=== PATIENT | male | born 1975 | race Caucasian/White ===

== ENCOUNTER 2017-12-26 11:17 | Emergency (ER) | payer OTHER ==
[2017-12-26 11:22] VITALS: RESP 20; TEMP 98.1
--- NOTE | 2017-12-26 11:52 | ED ---
General Adult HPI - General Chief complaint: Anxiety Stated complaint: Chest pain Time Seen by Provider: 12/26/17 11:23 Source: patient, RN notes reviewed Mode of arrival: wheelchair Limitations: no limitations - History of Present Illness Initial comments: 42-year-old male presents to the emergency department with a chief complaint of needing medication prescriptions. The patient states that he suffers from PTSD he states that he is here for his Xanax and Prozac refilled which his counselor states that he needs to bring to his appointment. They state that it needs to be a doctor from the [facility]. He denies any suicidal homicidal ideation. He denies any fever chills cough cold. He states that he is otherwise feeling well. He just needs his prescriptions. He states that he did get some Xanax 2 days ago. He denies any abdominal pain any chest pain. He states he is having his anxiety like attacks where his whole body will feel funny. He'll move his finger like he shooting someone he does get some chest heaviness and just feels completely incapable during this period and this is exactly like his typical anxiety flareup. He states no different than his typical PTSD reaction. - Related Data Allergies Allergy/AdvReac Type Severity Reaction Status Date / Time No Known Allergies Allergy Verified 12/26/17 11:22 Review of Systems ROS Statement: Those systems with pertinent positive or pertinent negative responses have been documented in the HPI. ROS Other: All systems not noted in ROS Statement are negative. Past Medical History Past Medical History: No Reported History History of Any Multi-Drug Resistant Organisms: None Reported Past Surgical History: Orthopedic Surgery Additional Past Surgical History / Comment(s): sinus surgery Past Psychological History: PTSD Smoking Status: Never smoker Past Alcohol Use History: None Reported Past Drug Use History: None Reported General Exam Limitations: no limitations General appearance: alert, in no apparent distress Eye exam: Present: normal appearance, PERRL, EOMI. Absent: scleral icterus, conjunctival injection, periorbital swelling ENT exam: Present: normal exam, mucous membranes moist Neck exam: Present: normal inspection. Absent: tenderness, meningismus, lymphadenopathy Respiratory exam: Present: normal lung sounds bilaterally. Absent: respiratory distress, wheezes, rales, rhonchi, stridor Neurological exam: Present: alert, oriented X3 Psychiatric exam: Present: normal affect, normal mood Skin exam: Present: warm, dry, intact, normal color. Absent: rash Course Vital Signs 12/26/17 11:20 Temperature 98.1 F Pulse Rate 90 Respiratory 20 Rate Blood Pressure 136/81 O2 Sat by Pulse 100 Oximetry Medical Decision Making - Medical Decision Making 42-year-old male presents for wanting prescription medication refills. At this time a maps report was run that shows he did recently receive a prescription for Xanax. I did contact his counseling Center regarding the patient is requesting these medications stating that this there've state that he needed to get him. They state this is not true. At this time we discussed that he needs to continue to follow-up with his therapist. We discussed that he continues Xanax that he was prescribed a we are unable to provide any more scripts. The patient stated that he understood at this time he will be discharged home. All questions have been answered. Disposition Clinical Impression: Acute anxiety Disposition: HOME SELF-CARE Condition: Stable Instructions: Generalized Anxiety Disorder (ED) Additional Instructions: Please follow up with her therapist. If he developed any suicidal or homicidal ideation please return to the emergency department. Referrals: Vanessa Barrett MD [STAFF PHYSICIAN] - 1-2 days Time of Disposition: 11:52
[2017-12-26 12:06] VITALS: BP 132/88; PULSE 98
== END 2017-12-26 12:07 | disposition home or self-care (01) ==
LOC: EC 11:17
DX: F41.9 Anxiety disorder, unspecified (principal); R07.89 Other chest pain
CPT/HCPCS: 99283